=== PATIENT | female | born 1975 | race Caucasian/White ===

== ENCOUNTER 2016-10-20 19:29 | Emergency (ER) | payer BC, OTHER ==
[2016-10-20 20:05] VITALS: RESP 18; TEMP 97.8
[2016-10-20] MEDS ORDERED: KETOROLAC TROMETHAMINE 30 MG/ML SOL IV ONE (20:11)
[2016-10-20] MEDS ORDERED: METOCLOPRAMIDE HYDROCHLORIDE 5 MG/ML SOL IV ONE (20:12)
[2016-10-20] MEDS ORDERED: METOCLOPRAMIDE HYDROCHLORIDE 5 MG/ML SOL ONE (20:15)
[2016-10-20] MEDS ORDERED: KETOROLAC TROMETHAMINE 30 MG/ML SOL ONE (20:15)
[2016-10-20 20:52] VITALS: BP 116/72; PULSE 68; O2SAT 99
== END 2016-10-20 20:50 | disposition home or self-care (01) ==
LOC: ED 19:29
DX: G43.909 Migraine, unspecified, not intractable, without status migrainosus (principal)
CPT/HCPCS: 99283 ×3; J1885; J2765; 87804